=== PATIENT | female | born 1980 | race Caucasian/White ===

== ENCOUNTER 2018-01-11 10:51 | Emergency (ER) | payer OTHER ==
[2018-01-11] MEDS ORDERED: TETRACAINE 0.5% OPHTH SOLUTION 4ML BOTTLE. OS (12:00)
[2018-01-11] MEDS ORDERED: FLUORESCEIN OPHTH TEST STRIP. OS (12:00)
== END 2018-01-11 12:05 | disposition home or self-care (01) ==
LOC: ER 12:05
DX: S05.02XA Injury of conjunctiva and corneal abrasion without foreign body, left eye, initial encounter (principal); J45.909 Unspecified asthma, uncomplicated; Z88.8 Allergy status to other drugs, medicaments and biological substances; Z88.5 Allergy status to narcotic agent; W50.4XXA Accidental scratch by another person, initial encounter; Y93.89 Activity, other specified; Y99.8 Other external cause status; Y92.89 Other specified places as the place of occurrence of the external cause
CPT/HCPCS: 99283

== ENCOUNTER 2019-01-29 15:56 | Emergency (ER) | payer OTHER ==
[~2019-01-29] VITALS: Ht 154.9 cm; Wt 47.6 kg
[~2019-01-29 15:56] MED LIST: ERYT1OIN6 LEFTEYE; HYDR-2761 PO
[2019-01-29 16:59] VITALS: BP 120/71
--- NOTE | 2019-01-29 17:47 | RAD ---
Exam: CT head and maxillofacial INDICATION: Trauma TECHNIQUE: Sequential axial images through the head and face were obtained without the administration of IV contrast. Comparisons: None FINDINGS: Head: No focal parenchymal lesion or hemorrhage is identified. There is no midline shift or sulcal effacement. No acute vascular territory infarction is identified. Hurst-white distinction is preserved. The ventricular system is within normal limits without compression hydrocephalus. The basal cisterns are well maintained. Face: Third right maxillary molar is absent. Minimal mucosal thickening maxillary sinus. Globes and intraorbital contents are unremarkable. No acute fractures. IMPRESSION: 1. No acute intracranial abnormality. 2. There is right maxillary molar is absent, age indeterminate. Correlate with direct visualization 3. Minimal mucosal thickening in the maxillary sinuses bilaterally. Exposure: One or more of the following in the visualized dose reduction techniques were utilized for this examination: 1. Automated exposure control 2. Adjustment of the MA and/or KV according to patient size Use of iterative of reconstructive technique Electronically signed by: She Newsome MD (01/29/2019 5:44 PM) [facility]
--- NOTE | 2019-01-29 18:22 | PHYS DOC ---
Past Medical History Past Medical History: Asthma, Migraines, Seizure Additional Past Medical Histor: TMJ (FLAQUITA MONROE APRN) Past Surgical History: , Tonsillectomy, Tubal ligation (FLAQUITA MONROE APRN) Alcohol Use: None Drug Use: None (FLAQUITA MONROE APRN) Adult General Chief Complaint Chief Complaint: OTHER COMPLAINTS [facility] HPI Patient is a 38 year old female with history of migraine headaches, TMJ, who presents to the ED today complaining of facial contusion. Patient states on Friday this week her own dog jumped on her and hit her on the face with his head. Patient denies any loss of consciousness when this. Patient states she followed up with her own doctor who informed her she could have TMJ flare up from this incident, patient also stated the PCP informed she has facial contusion which will heal up over time. Patient presented to the ED today stating her face is not currently numb bilaterally. (FLAQUITA MONROE APRN) Review of Systems Review of Systems Constitutional: Denies fever or chills [] Eyes: Denies change in visual acuity, redness, or eye pain [] HENT: Denies nasal congestion or sore throat [] Respiratory: Denies cough or shortness of breath [] Cardiovascular: No additional information not addressed in HPI [] GI: Denies abdominal pain, nausea, vomiting, bloody stools or diarrhea [] : Denies dysuria or hematuria [] Musculoskeletal: Denies back pain or joint pain [] Integument: Denies rash or skin lesions [] Neurologic: Reports facial contusion. Reports numbness to the face bilaterally.Denies headache, focal weakness or sensory changes [] All other systems were reviewed and found to be within normal limits, except as documented in this note. (FLAQUITA MONROE APRN) Allergies Allergies Allergies Coded Allergies Type Severity Reaction Last Updated Verified diphenhydramine Allergy Intermediate "SEIZURES" 01/11/18 Yes divalproex sodium Allergy Intermediate Unknown 01/11/18 Yes metoclopramide Allergy Intermediate Rash 01/11/18 Yes (KARMA PANTOJA DO) Physical Exam Physical Exam Constitutional: Well developed, well nourished, no acute distress, non-toxic appearance. [] HENT: Normocephalic, atraumatic, bilateral external ears normal, oropharynx moist, no oral exudates, nose normal. [] Eyes: PERRLA, EOMI, conjunctiva normal, no discharge. [] Neck: Normal range of motion, no tenderness, supple, no stridor. [] Cardiovascular:Heart rate regular rhythm, no murmur [] Lungs & Thorax: Bilateral breath sounds clear to auscultation [] Abdomen: Bowel sounds normal, soft, no tenderness, no masses, no pulsatile m asses. [] Skin: Warm, dry, no erythema, no rash. [] Back: No tenderness, no CVA tenderness. [] Extremities: No tenderness, no cyanosis, no clubbing, ROM intact, no edema. [] Neurologic: Alert and oriented X 3, normal motor function, normal sensory function, no focal deficits noted. Cranial nerves II through XII intact. Psychologic: Affect normal, judgement normal, mood normal. [] (FLAQUITA MONROE APRN) Current Patient Data Vital Signs Vital Signs Date Time Temp Pulse Resp B/P (MAP) Pulse Ox O2 Delivery O2 Flow Rate FiO2 01/29/19 16:59 98.4 116 20 120/71 (87) 99 Room Air 98.4 (KARMA PANTOJA DO) EKG EKG [] (FLAQUITA MONROE APRN) Radiology/Procedures Radiology/Procedures []PROCEDURE: CT HEAD AND MAXILLOFACIAL WO Exam: CT head and maxillofacial INDICATION: Trauma TECHNIQUE: Sequential axial images through the head and face were obtained without the administration of IV contrast. Comparisons: None FINDINGS: Head: No focal parenchymal lesion or hemorrhage is identified. There is no midline shift or sulcal effacement. No acute vascular territory infarction is identified. Hurst-white distinction is preserved. The ventricular system is within normal limits without compression hydrocephalus. The basal cisterns are well maintained. Face: Third right maxillary molar is absent. Minimal mucosal thickening maxillary sinus. Globes and intraorbital contents are unremarkable. No acute fractures. IMPRESSION: 1. No acute intracranial abnormality. 2. There is right maxillary molar is absent, age indeterminate. Correlate with direct visualization 3. Minimal mucosal thickening in the maxillary sinuses bilaterally. Exposure: One or more of the following in the visualized dose reduction techniques were utilized for this examination: 1. Automated exposure control 2. Adjustment of the MA and/or KV according to patient size Use of iterative of reconstructive technique Electronically signed by: She Lee MD (01/29/2019 5:44 PM) [facility] DICTATED and SIGNED BY: SHE LEE MD DATE: 01/29/19 1744 (FLAQUITA MONROE APRN) Course & Med Decision Making Course & Med Decision Making Pertinent Labs and Imaging studies reviewed. (See chart for details) This is a 38-year-old female patient who presents to the ED today with facial contusion after her dog jumped on her and hit her on the face with his head. No loss of consciousness. Patient has already been seen by the PCP and was diagnosed with TMJ flareup as well as contusion to the face. She presents today complaining of numbness bilaterally to her face from this injury. Talked to p atient at length. Informed her we can do a CAT scan of her head and face but i did not see any significant neurological symptoms to need a Ct scan. A stroke scale is 0. She requested the CAT scan to be done. CT of the head of maxillary facial are negative. Discharged to home. (FLAQUITA MONROE APRN) Dragon Disclaimer Dragon Disclaimer This electronic medical record was generated, in whole or in part, using a voice recognition dictation system. (FLAQUITA MONROE APRN) Departure Departure Impression: Primary Impression: Facial contusion Disposition: HOME, SELF-CARE Condition: STABLE Referrals: JOSE DANIEL DESAI MD (PCP) follow up next week Patient Instructions: Contusion, [id number] Additional Instructions: You were evaluated in the emergency room for facial contusion, your CT scans were negative for any acute findings. Please follow-up with your own doctor in one week. Attending Signature Attending Signature I have reviewed the PA/MOTION PICTURE PROJECTIONIST APPRENTICE's note and plan of care. I was available for consultation as needed during the patient's visit in the emergency department. I agree with the clinical impression, plan, and disposition. (KARMA PANTOJA DO) Problem Qualifiers Primary Impression: Facial contusion Encounter type: initial encounter Qualified Codes: S00.83XA - Contusion of other part of head, initial encounter FLAQUITA MONROE APRN Jan 29, 2019 18:22 KARMA PANTOJA DO Jan 30, 2019 01:57
== END 2019-01-29 18:32 | disposition home or self-care (01) ==
LOC: ER 15:56
DX: S00.83XA Contusion of other part of head, initial encounter (principal); R51 Headache; J45.909 Unspecified asthma, uncomplicated; Z88.5 Allergy status to narcotic agent; Z88.8 Allergy status to other drugs, medicaments and biological substances; W54.1XXA Struck by dog, initial encounter; Y93.89 Activity, other specified; Y92.89 Other specified places as the place of occurrence of the external cause; Y99.8 Other external cause status
CPT/HCPCS: 70450; 70486; 99284-25